=== PATIENT | female | born 1980 | race African-American/Black ===

== ENCOUNTER 2017-02-13 15:33 | Emergency (ER) | payer SELFPAY | END 2017-02-13 16:50 | disposition home or self-care (01) | LOC: ERS 15:33 | DX: Z76.0 Encounter for issue of repeat prescription (principal); H57.13 Ocular pain, bilateral; I10 Essential (primary) hypertension; G43.909 Migraine, unspecified, not intractable, without status migrainosus; F41.9 Anxiety disorder, unspecified; F32.9 Major depressive disorder, single episode, unspecified | CPT/HCPCS: 99283 ==

== ENCOUNTER 2017-03-09 15:03 | Emergency (ER) | payer SELFPAY ==
[2017-03-09] MEDS ORDERED: Ibuprofen 800 MG TAB ONE (15:23)
--- NOTE | 2017-03-09 15:55 | RAD ---
THREE VIEWS RIGHT SHOULDER: Date: 03-09-17 Comparison: None. History: Right shoulder pain, recent fall. FINDINGS: No widening of the AC or CC interspace. No fracture or evidence of dislocation seen. IMPRESSION: No acute findings. POS: [facility]
== END 2017-03-09 16:02 | disposition home or self-care (01) ==
LOC: ERS 15:03
DX: S40.011A Contusion of right shoulder, initial encounter (principal); I10 Essential (primary) hypertension; G43.909 Migraine, unspecified, not intractable, without status migrainosus; D64.9 Anemia, unspecified; F41.9 Anxiety disorder, unspecified; F32.9 Major depressive disorder, single episode, unspecified; Z79.899 Other long term (current) drug therapy; W18.2XXA Fall in (into) shower or empty bathtub, initial encounter

== ENCOUNTER 2017-05-24 20:49 | Emergency (ER) | payer SELFPAY ==
--- NOTE | 2017-05-24 21:28 | RAD ---
PA AND LATERAL VIEWS OF THE CHEST 05/24/17 HISTORY: Chest pain. FINDINGS: The heart size is normal. The lungs are well expanded and clear. The bony thorax is normal. IMPRESSION: Normal exam. POS: [facility]
--- NOTE | 2017-06-12 22:42 | EKG ---
Test Reason : CHEST PAIN Blood Pressure : / mmHG Vent. Rate : 095 BPM Atrial Rate : 095 BPM P-R Int : 140 ms QRS Dur : 088 ms QT Int : 380 ms P-R-T Axes : 039 024 034 degrees QTc Int : 477 ms Normal sinus rhythm Possible Left atrial enlargement Cannot rule out Anterior infarct , age undetermined Abnormal ECG Confirmed by DAVI DIA ([id number]), editor at large CANDELARIO DURANT ([id number]) on 06/12/2017 10:40:50 PM Referred By: TRIAGE Confirmed By:DAVI DIA
== END 2017-05-24 22:57 | disposition left against medical advice (07) ==
LOC: ERS 20:49
DX: Z53.21 Procedure and treatment not carried out due to patient leaving prior to being seen by health care provider (principal)
CPT/HCPCS: 71046; 93005

== ENCOUNTER 2018-03-27 21:41 | Emergency (ER) | payer SELFPAY ==
--- NOTE | 2018-03-27 22:08 | RAD ---
CHEST ONE VIEW: History: 37-year-old female with history of chest pain. FINDINGS: Monitor leads overlie the chest. Heart size is within normal limits. The lungs are clear. IMPRESSION: No acute intrathoracic disease. POS: [facility]
[2018-03-27 22:18] LABS: #Basophils 0.1 thou/uL (0.0-0.2); #Eosinphils 0.3 thou/uL (0.0-0.7); #Lymphocytes 4.9 thou/uL (1.20-3.40); #Monocytes 0.9 thou/uL (0.11-0.59); #Neutrophils 9.3 thou/uL (1.40-6.50); %Basophils 0.6 % (0.0-1.0); %Eosinophils 1.6 % (0.0-10.0); %Lymphocytes 31.8 % (21.0-51.0); %Monocytes 5.7 % (0.0-10.0); %Neutrophils 60.2 % (42.0-75.0); Mean Corpuscular HGB CONC 34.2 g/dL (32.0-36.0); Mean Corpuscular Hemoglobin 31.4 pg (27.0-31.0); Mean Corpuscular Volume 92.1 fL (78.0-98.0); Mean Platelet Volume 9.4 fL (7.4-10.4); Platelet Count 299 thou/uL (130-400); White Blood Cell (WBC) Count 15.4 thou/uL (4.8-10.8)
[2018-03-27] MEDS ORDERED: Metoclopramide HCl 10 MG/2 ML VIAL ONE (22:19)
[2018-03-27] MEDS ORDERED: diphenhydrAMINE 50 MG/ML VIAL ONE (22:19)
[2018-03-27 22:31] LABS: ALT (SGPT) 11 U/L (8-55); AST (SGOT) 15 U/L (5-34); Albumin 4.2 g/dL (3.5-5.0); Alkaline Phosphatase 82 U/L (40-150); Anion Gap 12 mmol/L (10-20); BUN (Urea Nitrogen) 21 mg/dL (7.0-18.7); Bilirubin, Total 1.4 mg/dL (0.2-1.2); CK (CPK) 68 U/L (29-168); Calc. Creatinine Clearance 0 mL/min (70-130); Calcium 9.6 mg/dL (7.8-10.44); Carbon Dioxide 22 mmol/L (22-29); Chloride 108 mmol/L (98-107); Estimated GFR-MDRD Greater than 90; Globulin 3.5 g/dL (2.4-3.5); Glucose 107 mg/dL (70-105); Potassium 3.7 mmol/L (3.5-5.1); Protein, Total 7.7 g/dL (6.0-8.3); Sodium 138 mmol/L (136-145)
[2018-03-27] MEDS ORDERED: Ketorolac Tromethamine 30 MG/ML VIAL ONE (22:41)
[2018-03-27 22:53] LABS: CKMB 1.1 ng/mL (0-6.6); Troponin I Less than 0.010 ng/mL (< 0.028)
[2018-03-27 22:57] LABS: Bilirubin Negative (Negative); Blood, Urine Moderate (Negative); Clarity CLEAR (Clear); Glucose, Urine (Dipstick) Negative (Negative); Leukocyte Negative (Negative); Nitrite Negative (Negative); Protein, Urine (Dipstick) 30 mg/dL (Neg-Trace); Specific Gravity, Urine 1.019 (1.002-1.036)
[2018-03-27 22:58] LABS: Bacteria/HPF None Seen HPF (None Seen); Hyaline Casts/LPF 0-3 HYALINE CAST LPF (0-3 Hyaline); WBC/HPF 0-3 HPF (0-3)
[2018-03-27] MEDS ORDERED: Azithromycin 250 MG TAB ONE (23:21)
== END 2018-03-28 00:30 | disposition home or self-care (01) ==
LOC: ERS 21:41
DX: J20.9 Acute bronchitis, unspecified (principal); G43.909 Migraine, unspecified, not intractable, without status migrainosus; I10 Essential (primary) hypertension
CPT/HCPCS: 71045; 80053; 81003; 81015; 82553; 84484; 85025; 93005; 96365; 96375; J1200; J1885; J2765

== ENCOUNTER 2019-06-21 13:06 | Emergency (ER) | payer SELFPAY ==
[2019-06-21] MEDS ORDERED: Ketorolac Tromethamine 60 MG/2 ML VIAL ONE (14:05)
[2019-06-21] MEDS ORDERED: Diazepam 5 MG TAB ONE (14:05)
== END 2019-06-21 15:18 | disposition home or self-care (01) ==
LOC: ERS 13:06
DX: S39.012A Strain of muscle, fascia and tendon of lower back, initial encounter (principal); I10 Essential (primary) hypertension; G43.909 Migraine, unspecified, not intractable, without status migrainosus; D64.9 Anemia, unspecified; F41.9 Anxiety disorder, unspecified; F32.9 Major depressive disorder, single episode, unspecified; Z79.899 Other long term (current) drug therapy; X50.9XXA Other and unspecified overexertion or strenuous movements or postures, initial encounter
CPT/HCPCS: 96372; 99283; J1885

== ENCOUNTER 2021-05-18 12:26 | Emergency (ER) | payer SELFPAY ==
[2021-05-18 14:04] LABS: Mean Corpuscular HGB CONC 34.8 g/dL (32.0-36.0); Mean Corpuscular Hemoglobin 31.7 pg (27.0-31.0); Mean Corpuscular Volume 91.1 fL (78.0-98.0); Mean Platelet Volume 8.8 fL (7.4-10.4); Platelet Count 254 thou/uL (130-400); RBC Distribution Width 18.4 % (11.5-14.5); Red Blood Cell (RBC) Count 3.45 mill/uL (4.20-5.40); White Blood Cell (WBC) Count 12.4 thou/uL (4.8-10.8)
[2021-05-18 14:19] LABS: ALT (SGPT) 15 U/L (8-55); AST (SGOT) 17 U/L (5-34); Albumin 3.8 g/dL (3.5-5.0); Alkaline Phosphatase 64 U/L (40-110); Anion Gap 13 mmol/L (10-20); BUN (Urea Nitrogen) 8 mg/dL (7.0-18.7); Bilirubin, Total 1.6 mg/dL (0.2-1.2); Calc. Creatinine Clearance 0 mL/min (70-130); Calcium 9.4 mg/dL (7.8-10.44); Carbon Dioxide 23 mmol/L (22-29); Chloride 104 mmol/L (98-107); Glucose 82 mg/dL (70-105); Potassium 3.5 mmol/L (3.5-5.1); Protein, Total 7.8 g/dL (6.0-8.3); Sodium 136 mmol/L (136-145)
[2021-05-18 14:27] LABS: #Basophils 0.1 thou/uL (0.0-0.2); #Eosinphils 0.2 thou/uL (0.0-0.7); #Lymphocytes 2.9 thou/uL (1.20-3.40); #Monocytes 0.9 thou/uL (0.11-0.59); #Neutrophils 8.3 thou/uL (1.40-6.50); %Basophils 0.5 % (0.0-1.0); %Eosinophils 1.5 % (0.0-10.0); %Lymphocytes 23.4 % (21.0-51.0); %Monocytes 7.5 % (0.0-10.0); %Neutrophils 67.1 % (42.0-75.0)
[2021-05-18 14:46] LABS: Bilirubin Negative (Negative); Blood, Urine 2+ (Negative); Clarity Clear (Clear); Glucose, Urine (Dipstick) Normal (Negative); Ketone, Urine Negative (Negative); Leukocyte Negative Leu/uL (Negative); Mucous/LPF Rare LPF (<2+); Nitrite Negative (Negative); Protein, Urine (Dipstick) 50 mg/dL (Neg-Trace); RBC/HPF 0-3 HPF (0-3); Specific Gravity, Urine 1.023 (1.002-1.036); WBC/HPF 0-3 HPF (0-3); pH, Urine 6.5 (5.0-9.0)
[2021-05-18 14:54] LABS: Bacteria/HPF Rare-Few HPF (None Seen)
== END 2021-05-18 15:00 | disposition home or self-care (01) ==
LOC: ERS 12:26
DX: O20.0 Threatened abortion (principal); O10.911 Unspecified pre-existing hypertension complicating pregnancy, first trimester; Z3A.12 12 weeks gestation of pregnancy
CPT/HCPCS: 36415; 80053; 81003; 81015; 84702; 85025; 86850; 86900; 86901

== ENCOUNTER 2021-05-25 21:51 | Emergency (ER) | payer SELFPAY ==
[2021-05-25 23:41] LABS: #Eosinphils 0.2 thou/uL (0.0-0.7); #Monocytes 0.8 thou/uL (0.11-0.59); #Neutrophils 9.7 thou/uL (1.40-6.50); %Basophils 0.3 % (0.0-1.0); %Eosinophils 1.2 % (0.0-10.0); %Lymphocytes 27.2 % (21.0-51.0); %Monocytes 5.6 % (0.0-10.0); %Neutrophils 65.7 % (42.0-75.0); Hemoglobin 9.6 g/dL (12.0-16.0); Mean Corpuscular HGB CONC 36.2 g/dL (32.0-36.0); Mean Corpuscular Hemoglobin 32.9 pg (27.0-31.0); Mean Corpuscular Volume 90.9 fL (78.0-98.0); Mean Platelet Volume 8.1 fL (7.4-10.4); Platelet Count 269 thou/uL (130-400); RBC Distribution Width 18.5 % (11.5-14.5); Red Blood Cell (RBC) Count 2.93 mill/uL (4.20-5.40); White Blood Cell (WBC) Count 14.8 thou/uL (4.8-10.8)
[2021-05-26 01:28] LABS: Bacteria/HPF None Seen HPF (None Seen); Bilirubin Negative (Negative); Blood, Urine 3+ (Negative); Clarity Turbid (Clear); Glucose, Urine (Dipstick) Normal (Negative); Ketone, Urine Negative (Negative); Leukocyte 25 Leu/uL (Negative); Nitrite Negative (Negative); Protein, Urine (Dipstick) 70 mg/dL (Neg-Trace); RBC/HPF Greater than 50 HPF (0-3); Specific Gravity, Urine 1.021 (1.002-1.036); Squamous Epithelial 0-3 HPF (0-3); WBC/HPF Greater than 50 HPF (0-3)
== END 2021-05-26 01:45 | disposition home or self-care (01) ==
LOC: ERS 21:51
DX: O20.0 Threatened abortion (principal); O16.1 Unspecified maternal hypertension, first trimester; Z3A.12 12 weeks gestation of pregnancy; Z79.899 Other long term (current) drug therapy
CPT/HCPCS: 36415; 81003; 81015; 84702; 85025; 87086; 99284

== ENCOUNTER 2023-12-08 22:30 | Emergency (ER) | payer OTHER | END 2023-12-08 22:43 | disposition left against medical advice (07) | LOC: ERS 22:30 | DX: Z53.21 Procedure and treatment not carried out due to patient leaving prior to being seen by health care provider (principal) ==

== ENCOUNTER 2025-03-05 12:07 | Emergency (ER) | payer OTHER ==
[2025-03-05] MEDS ORDERED: Nitroglycerin 0.4 MG TAB 1 EACH ONE (13:45)
[2025-03-05] MEDS ORDERED: Aspirin Chewable 81 MG TAB ONE (13:45)
[2025-03-05] MEDS ORDERED: cloNIDine 0.1 MG TAB ONE (14:30)
[2025-03-05 16:13] LABS: #Basophils 0.06 10x3/uL (0.0-0.2); #Eosinophils 0.47 10x3/uL (0.0-0.7); #Monocytes 0.54 10x3/uL (0.11-0.59); #Neutrophils 6.76 10x3/uL (1.40-6.50); %Basophils 0.5 % (0.0-1.0); %Eosinophils 4.2 % (0.0-10.0); %Lymphocytes 29.7 % (21.0-51.0); %Monocytes 4.8 % (0.0-10.0); %Neutrophils 60.3 % (42.0-75.0); Hematocrit 26.2 % (36.0-47.0); Hemoglobin 9.3 g/dL (12.0-16.0); Mean Corpuscular Hemoglobin 31.1 pg (27.0-31.0); Mean Corpuscular Volume 87.6 fL (78.0-98.0); Platelet Count 278 10x3/uL (130-400); Red Blood Cell (RBC) Count 2.99 mill/uL (4.20-5.40); White Blood Cell (WBC) Count 11.22 10x3/uL (4.8-10.8)
[2025-03-05 16:17] LABS: BHCG - Serum Negative (NEGATIVE); Pregs Control Background? CLEAR/WHITE (CLR/WHITE); Pregs Control Bar Appear? YES (CONTROL BAR)
[2025-03-05 16:31] LABS: ALT (SGPT) 7 U/L (Less than 34); AST (SGOT) 16 U/L (11-34); Albumin 4.0 g/dL (3.1-4.5); Alkaline Phosphatase 75 U/L (40-110); Anion Gap 7 mmol/L (10-20); BUN (Urea Nitrogen) 13 mg/dL (7.0-18.7); Bilirubin, Total 1.7 mg/dL (0.3-1.2); Calc. Creatinine Clearance 0 mL/min (70-130); Calcium 8.6 mg/dL (7.8-10.44); Carbon Dioxide 30 mmol/L (22-29); Chloride 107 mmol/L (98-107); Globulin 3.2 g/dL (2.4-3.5); Glucose 90 mg/dL (70-105); Potassium 3.7 mmol/L (3.5-5.1); Sodium 140 mmol/L (136-145)
[2025-03-05 17:04] LABS: Magnesium 1.9 mg/dL (1.6-2.6)
== END 2025-03-05 17:40 | disposition home or self-care (01) ==
LOC: ERS 12:07
DX: R07.89 Other chest pain (principal); I11.0 Hypertensive heart disease with heart failure; I50.9 Heart failure, unspecified; Z79.899 Other long term (current) drug therapy
CPT/HCPCS: 71045; 80053; 83735; 83880; 84484; 84703; 85025; 93005